=== PATIENT | male | born 1975 | race African-American/Black ===

== ENCOUNTER 2016-11-09 08:35 | Emergency (ER) | payer OTHER ==
[~2016-11-09 08:35] MED LIST: NO HOME MEDS
[2016-11-09] MEDS ORDERED: Z-PAK PO (09:02)
[2016-11-09] MEDS ORDERED: STEROID INJECTION IM (09:03)
[2016-11-09] MEDS ORDERED: TYLENOL SEVE PO (09:03)
[2016-11-09] MEDS ORDERED: REFRESH OPH (09:03)
[2016-11-09 09:24] LABS: BASOPHILS 0.1 %; BASOPHILS ABSOLUTE 0.01 10/3/uL (0.0-0.16); EOSINOPHILS 0 %; HEMATOCRIT 41.6 % (40.0-51.0); HEMOGLOBIN 13.9 g/dL (13.6-17.8); IMMATURE GRANULOCYTES 0.4 %; IMMATURE GRANULOCYTES ABSOLUTE 0.07 10/3/uL (0.0-0.11); LYMPHOCYTES 9.3 %; LYMPHOCYTES ABSOLUTE 1.47 10/3/uL (0.67-4.30); MANUAL DIFF NO %; MEAN CORPUS HGB CONC 33.4 g/dL (32.0-36.0); MEAN CORPUSCULAR HEMOGLOB 29.1 pg (26.0-34.0); MEAN CORPUSCULAR VOLUME 87.2 fL (80-100); MEAN PLATELET VOLUME 9.8 fL (9.2-13.0); MONOCYTES ABSOLUTE 1.11 10/3/uL (0.21-1.20); NEUTROPHILS 83.2 %; NEUTROPHILS ABSOLUTE 13.18 10/3/uL (2.02-8.40); PLATELET COUNT 278 10/3/uL (150-400); RBC DISTRIBUTION WIDTH 13.8 % (12.0-16.0); RED CELL COUNT 4.77 10/6/uL (4.7-6.1); WHITE BLOOD CELLS 15.8 10/3/uL (4.5-10.5)
[2016-11-09 09:31] LABS: INTERNATIONAL NORMAL RATI 1.1 UNITS (-); PROTIME (NOT ORD) 13.7 SEC (12.0-14.5)
[2016-11-09 09:41] LABS: BUN (BLOOD UREA NITROGEN) 12 MG/DL (6-23); CALCIUM, SERUM 9.3 MG/DL (8.5-10.4); CHEST PAIN PROFILE TAT 0 Hrs 21 Mins; CHLORIDE, SERUM 106 MMOL/L (96-112); CO2 (CARBON DIOXIDE) 26 MMOL/L (24-34); CREATININE 0.94 MG/DL (0.70-1.30); GFR AFRICAN AMERICAN 116 ML/MIN (>=60); GFR NON AFRICAN AMERICAN 100 ML/MIN (>=60); GLUCOSE, SERUM 121 MG/DL (60-99); POTASSIUM, SERUM 4.2 MMOL/L (3.5-5.3); SODIUM, SERUM 139 MMOL/L (135-148); TROPONIN I <0.02 NG/ML (<0.05)
[2016-11-09 10:17] LABS: D-DIMER QUANTITATIVE < 0.27 ug/mLFEU (< 0.50)
[2016-11-10] MEDS ORDERED: COLCH6 PO (09:50)
[2016-11-10] MEDS ORDERED: PROTONIX PO (09:50)
[2016-11-10] MEDS ORDERED: INDO50 PO (09:51)
== END 2016-11-09 11:00 | disposition home or self-care (01) ==
LOC: ER 08:35
PROVIDERS: Nurse Practitioner
DX: I21.3 ST elevation (STEMI) myocardial infarction of unspecified site (principal); F17.200 Nicotine dependence, unspecified, uncomplicated; Z88.5 Allergy status to narcotic agent; Z79.899 Other long term (current) drug therapy
CPT/HCPCS: 71010; 80048; 83735; 83880; 84484; 85025; 85379; 85610; 85730; 93005; 99285; A9270-GY; C1894; J2250; J3010

== ENCOUNTER 2016-11-09 09:05 | Inpatient (IN) | payer OTHER ==
[~2016-11-09] VITALS: Ht 172.7 cm; Wt 104.3 kg
--- NOTE | ~2016-11-09 | HP ---
History And Physical [facility] [address] [place]. [address] NAME: JAY WOLFE : 75 STATUS : ADM IN [facility]#: [id number] AGE: 41 ADM/REG DATE : 11/09/16 MR#: [id number] REPORT SERV DATE: 11/09/16 DICTATED BY: NASREEN DIXON DATE: 11/09/16 REPORT STATUS : Draft TRANSCRIBED BY: MODGlynn DATE: 11/09/16 DATE OF ADMISSION: 11/09/2016 IDENTIFYING DATA: The patient is a 41-year-old man with no previous cardiovascular or other significant medical history. CHIEF COMPLAINT: Two-day history of insidious onset epigastric/substernal chest pain. HISTORY OF PRESENT ILLNESS: Mr. Wolfe is a pleasant 41-year-old man who was in his usual state of health until several days ago. The patient describes symptoms suggestive of a viral upper respiratory tract infection. He was seen at the acute care facility, where he was given a steroid injection and a prescription for azithromycin. The patient reports that about two days ago he began to notice an epigastric, dull/pressure-type pain associated with nausea. This was not clearly exertional. The pain was positional, though the pain would actually improve with lying flat, and be exacerbated while leaning forward. The patient reports the pain has waxed and waned, but became intolerable earlier today. This prompted a presentation to [facility]. There, a 12-lead EKG was very concerning for an acute coronary syndrome, showing ST-segment elevation in leads V1 through V3 which met criteria for an acute myocardial infarction. Given the patient's concerning symptoms and EKG finding, he was taken for emergency coronary angiography. The patient denies any significant past medical history, aside from an episode of acute appendicitis. He does not have a regular doctor however. PAST SURGICAL HISTORY: The patient has had an appendectomy. He reports no other major surgeries. FAMILY HISTORY: The patient reports no family history of early coronary heart disease or sudden cardiac . SOCIAL HISTORY: The patient is a 1/4-pack per day x10 years smoker, but quit several months ago. He continues to use vapor cigarettes, though he is making efforts to quit. He drinks alcohol rarely. ALLERGIES: THE PATIENT REPORTS AN ALLERGY TO CODEINE, WHICH CAUSES AN ANAPHYLACTOID REACTION. HOME MEDICATIONS: The patient is on no doctor-prescribed medications, except for the azithromycin prescription he recently acquired at an acute care facility. PHYSICAL EXAMINATION: VITAL SIGNS: The patient is afebrile. His blood pressure is currently approximately 130/80 mmHg, heart rate is 62 beats per minute and regular, respirations 14, oxygen saturation is 98% on room air. CONSTITUTIONAL: The patient is an overweight, man, in no acute distress. EYES: PERRL, EOMI, clear conjunctiva. HEAD/MNT: NCAT with moist mucous membranes and grossly normal hard and soft palate. History And Physical [address] [place]. [address] NAME: JAY WOLFE : 75 STATUS : ADM IN [facility]#: [id number] AGE: 41 ADM/REG DATE : 11/09/16 MR#: [id number] REPORT SERV DATE: 11/09/16 DICTATED BY: NASREEN DIXON DATE: 11/09/16 REPORT STATUS : Draft TRANSCRIBED BY: VERNON DATE: 11/09/16 NECK: Supple with no obvious thyromegaly or lymphadenopathy. CARDIOVASCULAR: There is an early peaking 1/6 systolic murmur noted at the right upper sternal border suggestive of a flow murmur. The jugular venous pressure is normal. No rubs are noted. The cardiac exam is otherwise unremarkable. PULMONARY: Clear to auscultation bilaterally, no wheezing, rales or rhonchi noted. No dullness to percussion. Nonlabored. ABDOMINAL: Soft, nontender, nondistended with no hepatosplenomegaly noted. EXTREMITIES: No clubbing, cyanosis or edema. MUSCULOSKELETAL: Grossly normal strength and range of motion in all extremities. INTEGUMENTARY: Skin appears intact with no bruises, wounds or active lesions noted. NEURO/PSYC: Alert and oriented x3, with no dysarthria, facial droop or lateralizing weakness noted. 12-LEAD EKG: The patient's admission 12-lead EKG shows normal sinus rhythm with 1-[address]-segment elevation with associated T-wave inversion. There is borderline ST- segment depression in lead V3, with no other obvious reciprocal changes. However, the EKG does meet criteria for an acute anterior myocardial infarction. CARDIAC CATHETERIZATION: The patient was found to have normal epicardial coronary arteries, with no significant plaquing and ENRRIQUE-3 flow in all major epicardial vessels. The patient's left ventricular systolic function is normal and estimated at 50%. The patient did have a mildly elevated left ventricular end-diastolic pressure of approximately 20 mmHg. LABORATORY: Labs are significant for a leukocytosis of 15,000. There is a mild hyperglycemia of approximately 128. Troponin I is less than 0.02. The D-dimer is within normal limits as his B-type natriuretic peptide. The patient's renal function and other labs are essentially normal. CHEST X-RAY: The chest x-ray is normal. ASSESSMENT AND PLAN: 1. Suspected acute pericarditis: The patient's presentation is not classic for pericarditis, but this would explain the patient's EKG changes as well as his positional symptoms. Also, the patient has had a recent viral-type upper respiratory tract infection, which would increase the likelihood of acute pericarditis. The patient will be started on Motrin 600 mg p.o. q.8 hours. He will be started on colchicine 0.6 mg p.o. daily. Should the patient's pain improved, we will consider discharge to home tomorrow. We will check an ESR and CRP. 2. Possible gastroesophageal reflux disease: The patient will be started on Protonix, in case his symptoms are from gastroesophageal reflux disease. [facility] Nasreen Dixon MD History And Physical [address] [address] NAME: JAY WOLFE : 75 STATUS : ADM IN [facility]#: [id number] AGE: 41 ADM/REG DATE : 11/09/16 MR#: [id number] REPORT SERV DATE: 11/09/16 DICTATED BY: NASREEN DIXON DATE: 11/09/16 REPORT STATUS : Draft TRANSCRIBED BY: VERNON DATE: 11/09/16 / [id number] CC: Nasreen Dixon MD
[~2016-11-09 09:05] MED LIST changes: +REFRESH OPH; +STEROID INJECTION IM; +TYLENOL SEVE PO; +Z-PAK PO
[2016-11-10 05:08] LABS: BASOPHILS 0.2 %; BASOPHILS ABSOLUTE 0.02 10/3/uL (0.0-0.16); EOSINOPHILS 1.2 %; EOSINOPHILS ABSOLUTE 0.13 10/3/uL (0.0-0.53); HEMATOCRIT 38.4 % (40.0-51.0); HEMOGLOBIN 12.6 g/dL (13.6-17.8); IMMATURE GRANULOCYTES 0.4 %; IMMATURE GRANULOCYTES ABSOLUTE 0.04 10/3/uL (0.0-0.11); LYMPHOCYTES 29.4 %; LYMPHOCYTES ABSOLUTE 3.18 10/3/uL (0.67-4.30); MEAN CORPUS HGB CONC 32.8 g/dL (32.0-36.0); MEAN CORPUSCULAR VOLUME 88.5 fL (80-100); MEAN PLATELET VOLUME 9.6 fL (9.2-13.0); MONOCYTES 6.4 %; MONOCYTES ABSOLUTE 0.69 10/3/uL (0.21-1.20); NEUTROPHILS 62.4 %; NEUTROPHILS ABSOLUTE 6.74 10/3/uL (2.02-8.40); PLATELET COUNT 269 10/3/uL (150-400); RBC DISTRIBUTION WIDTH 14.1 % (12.0-16.0); RED CELL COUNT 4.34 10/6/uL (4.7-6.1); WHITE BLOOD CELLS 10.8 10/3/uL (4.5-10.5)
[2016-11-10 05:14] LABS: MANUAL DIFF NO %
[2016-11-10 05:21] LABS: BUN (BLOOD UREA NITROGEN) 13 MG/DL (6-23); CALCIUM, SERUM 8.9 MG/DL (8.5-10.4); CHLORIDE, SERUM 108 MMOL/L (96-112); CO2 (CARBON DIOXIDE) 27 MMOL/L (24-34); CREATININE 0.84 MG/DL (0.70-1.30); GFR AFRICAN AMERICAN 126 ML/MIN (>=60); GFR NON AFRICAN AMERICAN 109 ML/MIN (>=60); GLUCOSE, SERUM 118 MG/DL (60-99); POTASSIUM, SERUM 4.3 MMOL/L (3.5-5.3); SODIUM, SERUM 142 MMOL/L (135-148)
[2016-11-10] MEDS ORDERED: PROTONIX PO (09:50)
[2016-11-10] MEDS ORDERED: COLCH6 PO (09:50)
[2016-11-10] MEDS ORDERED: INDO50 PO (09:51)
== END 2016-11-10 15:20 | disposition home or self-care (01) | DRG 287 ==
LOC: ENRESERV → ENRESERVDT → ENRESERVTM → SSU1 09:05 → SSU2 09:05 → SSU1 11:09
PROVIDERS: Internal Medicine Cardiovascular Disease
PROC: 4A023N7 Measurement of Cardiac Sampling and Pressure, Left Heart, Percutaneous Approach (ICD-10-PCS; principal; 2016-11-09)
PROC: B2111ZZ Fluoroscopy of Multiple Coronary Arteries using Low Osmolar Contrast (ICD-10-PCS; 2016-11-09)
PROC: B2151ZZ Fluoroscopy of Left Heart using Low Osmolar Contrast (ICD-10-PCS; 2016-11-09)
DX: I30.9 Acute pericarditis, unspecified (principal); F17.290 Nicotine dependence, other tobacco product, uncomplicated; K21.9 Gastro-esophageal reflux disease without esophagitis; Z88.5 Allergy status to narcotic agent
CPT/HCPCS: 80048; 85025; 85652; 86140; 93005; 93306; 93458; 99152; A9270-GY; C1769; C1894; C9113; J2405; Q9967